=== PATIENT | male | born 1950 | race Caucasian/White ===

== ENCOUNTER → 2020-09-17 | Outpatient (CLI) | payer MEDICARE, OTHER ==
[~2020-09-17] MED LIST: BUME1TAB7 PO; CARV3.12 PO; DIGO125T71 PO; EZET10TA13 PO; PITA2TAB2 PO; RIVA15TA PO
== END | disposition home or self-care (01) ==
LOC: RAH 10:48
PROVIDERS: ATTEND Internal Medicine Cardiovascular Disease
DX: T82.110A Breakdown (mechanical) of cardiac electrode, initial encounter (principal); X58.XXXA Exposure to other specified factors, initial encounter
CPT/HCPCS: 71046

== ENCOUNTER → 2021-02-03 | Outpatient (CLI) | payer MEDICARE | END | disposition home or self-care (01) | LOC: SHCH 15:42 | PROVIDERS: ATTEND Internal Medicine Cardiovascular Disease | DX: I42.9 Cardiomyopathy, unspecified (principal) | CPT/HCPCS: 93306; 93356 ==

== ENCOUNTER → 2022-07-06 | Outpatient (CLI) | payer MEDICARE ==
[2022-07-06 12:41] LABS: CARBON DIOXIDE 33 mmol/L (21-32); CHLORIDE 104 mmol/L (101-111); CREATININE 1.6 mg/dL (0.5-1.5); GLOMERULAR FILTR. RATE CALC 45 mL/min (>60); GLUCOSE,RANDOM 96 mg/dL (70-105); POTASSIUM 4.2 mmol/L (3.5-5.1); SODIUM SERUM 140 mmol/L (136-145); UREA NITROGEN, BLOOD 25 mg/dL (7-18)
[2022-07-06 12:49] LABS: DIGOXIN < 0.20 ng/mL (0.50-2.00)
== END | disposition home or self-care (01) ==
LOC: LAB 10:46
PROVIDERS: ATTEND Internal Medicine Cardiovascular Disease
DX: I50.22 Chronic systolic (congestive) heart failure (principal)
CPT/HCPCS: 36415; 80048; 80162; 83880

== ENCOUNTER → 2022-09-10 | Outpatient (CLI) | payer MEDICARE ==
[2022-09-10 14:00] LABS: CREATININE 1.6 mg/dL (0.5-1.5)
== END | disposition home or self-care (01) ==
LOC: LAB 11:44
PROVIDERS: ATTEND Internal Medicine Cardiovascular Disease
DX: I50.42 Chronic combined systolic (congestive) and diastolic (congestive) heart failure (principal)
CPT/HCPCS: 36415; 80048; 83880

== ENCOUNTER → 2022-09-23 | Outpatient (CLI) | payer MEDICARE ==
[2022-09-23 13:06] LABS: BASOPHILS % (AUTO) 1.1 % (0.0-5.0); EOSINOPHILS % (AUTO) 0.9 % (0.0-8.0); HEMATOCRIT 36.7 % (42-54); LYMPHOCYTES % (AUTO) 15.5 % (21.0-51.0); MEAN CORPUSCULAR HEMOGLOBIN 28.7 pg (27.0-33.0); MEAN CORPUSCULAR HGB CONC 31.9 g/dL (32.0-36.0); NEUTROPHILS % (AUTO) 67.3 % (40.0-77.0); PLATELET COUNT (AUTO) 202 K/uL (130-400); RED BLOOD CELL COUNT(AUTO) 4.08 MIL/uL (4.50-6.20); RED CELL DISTRIBUTION WIDTH 17.2 % (11.0-15.5); WHITE BLOOD COUNT (AUTO) 6.3 K/uL (4.8-10.8)
[2022-09-23 13:27] LABS: ALBUMIN 3.2 g/dL (3.5-5.0); CREATININE 1.6 mg/dL (0.5-1.5); MAGNESIUM 2.1 mg/dL (1.80-2.40); POTASSIUM 3.6 mmol/L (3.5-5.1); THYROID STIMULATING HORMONE 1.49 uIU/mL (0.36-3.74); TOTAL PROTEIN, SERUM 6.1 g/dL (6.0-8.3)
== END | disposition home or self-care (01) ==
LOC: LAB 11:17
PROVIDERS: ATTEND Internal Medicine Cardiovascular Disease
DX: I50.42 Chronic combined systolic (congestive) and diastolic (congestive) heart failure (principal); I48.0 Paroxysmal atrial fibrillation; R53.83 Other fatigue
CPT/HCPCS: 36415; 80053; 83735; 84436; 84443; 85025

== ENCOUNTER 2022-10-01 06:17 | Inpatient (IN) | payer MEDICARE ==
[~2022-10-01] VITALS: Ht 170.2 cm; Wt 68.3 kg
[2022-10-01 06:38] LABS: BASOPHILS % (AUTO) 1.3 % (0.0-5.0); LYMPHOCYTES % (AUTO) 17.9 % (21.0-51.0); MEAN CORPUSCULAR HEMOGLOBIN 28.2 pg (27.0-33.0); MEAN CORPUSCULAR HGB CONC 31.8 g/dL (32.0-36.0); MEAN CORPUSCULAR VOLUME 88.6 fL (79-99); MONOCYTES % (AUTO) 16.9 % (3.0-13.0); NEUTROPHILS % (AUTO) 61.6 % (40.0-77.0); PLATELET COUNT (AUTO) 207 K/uL (130-400); RED BLOOD CELL COUNT(AUTO) 4.29 MIL/uL (4.50-6.20); RED CELL DISTRIBUTION WIDTH 17.2 % (11.0-15.5)
[2022-10-01 06:53] LABS: ALBUMIN 3.3 g/dL (3.5-5.0); CREATININE 2.1 mg/dL (0.5-1.5); POTASSIUM 3.9 mmol/L (3.5-5.1); TOTAL PROTEIN, SERUM 6.2 g/dL (6.0-8.3)
[2022-10-01] MEDS ORDERED: MAGNESIUM 2GM PREMIX 50ML 50 ML IV PRN (08:00)
[2022-10-01] MEDS ORDERED: KCL 20 MEQ ERTAB PO PRN (08:00)
[2022-10-01] MEDS ORDERED: LIDOCAINE HCL-MPF 1% 2ML VIAL IV PRN (08:00)
[2022-10-01] MEDS ORDERED: POTASSIUM CHLORIDE 10% ELIXIR 20 MEQ/15 ML UDCUP PO PRN (08:00)
[2022-10-01] MEDS ORDERED: POTASSIUM CHLORIDE 20MEQ/100ML 100 ML IV PRN (08:00)
[2022-10-01] MEDS ORDERED: MORPHINE 2 MG SYG IV PRN (08:00)
[2022-10-01] MEDS ORDERED: HYDROMORPHONE 1 MG INJ IV PRN (08:00)
[2022-10-01] MEDS ORDERED: FUROSEMIDE 20MG VIAL IV SCH (08:30)
[2022-10-01] MEDS ORDERED: AMIODARONE 200 MG TABLET PO SCH (09:00)
[2022-10-01] MEDS: FUROSEMIDE 20MG VIAL IV SCH ×2 (09:14→20:24)
[2022-10-01] MEDS: KCL 20 MEQ ERTAB PO SCH ×2 (09:17→20:25)
[2022-10-01] MEDS: ENOXAPARIN SODIUM 80 MG/0.8 ML SQ SCH ×2 (09:18→20:26)
[2022-10-01] MEDS: AMIODARONE 200 MG TABLET PO SCH (09:18)
[2022-10-01] MEDS ORDERED: SACU1TAB PO (09:46)
[2022-10-01] MEDS ORDERED: AMIO200T68 PO (09:49)
[2022-10-01 11:31] VITALS: BP 126/86
[2022-10-01] MEDS ORDERED: CARV6.25 PO (11:44)
[2022-10-01 15:55] VITALS: BP 122/84
[2022-10-01 19:53] VITALS: BP 145/78
[2022-10-02] VITALS (7 sets, daily range): BP systolic 105–141; BP diastolic 71–93
[2022-10-02] MEDS: FUROSEMIDE 20MG VIAL IV SCH ×2 (08:07→20:35)
[2022-10-02] MEDS: AMIODARONE 200 MG TABLET PO SCH (08:08)
[2022-10-02] MEDS: PANTOPRAZOLE 40 MG TAB DR PO SCH (08:08)
[2022-10-02] MEDS: KCL 20 MEQ ERTAB PO SCH ×2 (08:08→20:36)
[2022-10-02 08:43] LABS: HEMATOCRIT 39.3 % (42-54); MEAN CORPUSCULAR HGB CONC 31.8 g/dL (32.0-36.0); MEAN CORPUSCULAR VOLUME 87.9 fL (79-99); RED BLOOD CELL COUNT(AUTO) 4.47 MIL/uL (4.50-6.20); RED CELL DISTRIBUTION WIDTH 17.1 % (11.0-15.5)
[2022-10-02 08:59] LABS: ALBUMIN 3.3 g/dL (3.5-5.0); CREATININE 2.1 mg/dL (0.5-1.5); POTASSIUM 4.1 mmol/L (3.5-5.1); TOTAL PROTEIN, SERUM 6.2 g/dL (6.0-8.3)
[2022-10-02] MEDS ORDERED: RIVAROXABAN 15 MG TABLET PO SCH ×2 (17:00→20:00)
[2022-10-02] MEDS: BUMETANIDE 1 MG TAB PO SCH (20:36)
[2022-10-02] MEDS: CARVEDILOL 6.25 MG TABLET PO SCH (20:38)
[2022-10-02] MEDS ORDERED: LIVALO 2 MG PO SCH (21:00)
[2022-10-02] MEDS ORDERED: EZETIMIBE 10 MG TAB PO SCH (21:00)
[2022-10-03 03:35] VITALS: BP 109/73
[2022-10-03] MEDS: BUMETANIDE 1 MG TAB PO SCH (07:59)
[2022-10-03] MEDS: FUROSEMIDE 20MG VIAL IV SCH (07:59)
[2022-10-03] MEDS: AMIODARONE 200 MG TABLET PO SCH (07:59)
[2022-10-03 08:00] VITALS: BP 118/68
[2022-10-03] MEDS: CARVEDILOL 6.25 MG TABLET PO SCH (08:00)
[2022-10-03] MEDS: PANTOPRAZOLE 40 MG TAB DR PO SCH (08:00)
[2022-10-03] MEDS: KCL 20 MEQ ERTAB PO SCH (08:00)
[2022-10-03] MEDS ORDERED: AMIODARONE 200 MG TABLET PO SCH (09:00)
[2022-10-03] MEDS ORDERED: SACUBITRIL/VALSARTAN 1 EACH TABLET PO SCH (09:00)
[2022-10-04] MEDS ORDERED: DIGOXIN 125 MCG TABLET PO SCH (09:00)
== END 2022-10-03 10:17 | disposition home or self-care (01) | DRG 291 ==
LOC: EDH 06:17 → EDHIP 06:20 → 2AH 11:26
PROVIDERS: ADMIT Internal Medicine; ATTEND Internal Medicine
DX: I13.0 Hypertensive heart and chronic kidney disease with heart failure and stage 1 through stage 4 chronic kidney disease, or unspecified chronic kidney disease (principal); I50.23 Acute on chronic systolic (congestive) heart failure; J96.01 Acute respiratory failure with hypoxia; J98.11 Atelectasis; N18.4 Chronic kidney disease, stage 4 (severe); I25.10 Atherosclerotic heart disease of native coronary artery without angina pectoris; I25.2 Old myocardial infarction; I25.5 Ischemic cardiomyopathy; I48.0 Paroxysmal atrial fibrillation; Z79.01 Long term (current) use of anticoagulants; Z79.899 Other long term (current) drug therapy; Z95.5 Presence of coronary angioplasty implant and graft; Z95.810 Presence of automatic (implantable) cardiac defibrillator; E78.5 Hyperlipidemia, unspecified
CPT/HCPCS: 36415; 71045; 80053; 83605; 83735; 83880; 84484; 85025; 85027; 86850; 86900; 86901; 93005; 99291; G0378; J1650; J1940

== ENCOUNTER → 2022-10-06 | Outpatient (CLI) | payer MEDICARE ==
[~2022-10-06] MED LIST changes: +AMIO200T68 PO; -CARV3.12 PO; +CARV6.25 PO; +SACU1TAB PO
[2022-10-06 12:48] LABS: CREATININE 2.1 mg/dL (0.5-1.5)
== END | disposition home or self-care (01) ==
LOC: LAB 10:57
PROVIDERS: ATTEND Internal Medicine Cardiovascular Disease
DX: I50.22 Chronic systolic (congestive) heart failure (principal)
CPT/HCPCS: 36415; 80048; 83880

== ENCOUNTER → 2022-10-20 | Outpatient (CLI) | payer MEDICARE ==
[2022-10-20 12:39] LABS: CREATININE 2.3 mg/dL (0.5-1.5); POTASSIUM 3.8 mmol/L (3.5-5.1)
== END | disposition home or self-care (01) ==
LOC: LAB 10:27
PROVIDERS: ATTEND Internal Medicine Cardiovascular Disease
DX: I50.42 Chronic combined systolic (congestive) and diastolic (congestive) heart failure (principal)
CPT/HCPCS: 36415; 80048; 83880

== ENCOUNTER 2022-11-04 07:04 | Day surgery (SDC) | payer MEDICARE ==
[2022-11-03 15:39] LABS: BASOPHILS % (AUTO) 1.4 % (0.0-5.0); EOSINOPHILS % (AUTO) 1.4 % (0.0-8.0); HEMATOCRIT 39.9 % (42-54); LYMPHOCYTES % (AUTO) 20.2 % (21.0-51.0); MEAN CORPUSCULAR HEMOGLOBIN 28.2 pg (27.0-33.0); MEAN CORPUSCULAR HGB CONC 31.1 g/dL (32.0-36.0); MEAN CORPUSCULAR VOLUME 90.9 fL (79-99); MONOCYTES % (AUTO) 13.9 % (3.0-13.0); NEUTROPHILS % (AUTO) 62.7 % (40.0-77.0); PLATELET COUNT (AUTO) 185 K/uL (130-400); RED BLOOD CELL COUNT(AUTO) 4.39 MIL/uL (4.50-6.20); RED CELL DISTRIBUTION WIDTH 16.6 % (11.0-15.5)
[2022-11-03 15:50] LABS: INR 1.67 (0.85-1.15); PROTHROMBIN TIME 17.7 SEC (9.6-11.6)
[2022-11-03 15:52] LABS: PARTIAL THROMBOPLASTIN TIME 37.9 SEC (26.3-35.5)
[2022-11-03 15:57] LABS: CREATININE 2.5 mg/dL (0.5-1.5); DIGOXIN 0.97 ng/mL (0.50-2.00); MAGNESIUM 2.2 mg/dL (1.80-2.40); POTASSIUM 4.2 mmol/L (3.5-5.1)
[2022-11-03 16:01] VITALS: BP 93/60
[~2022-11-04] VITALS: Ht 170.2 cm; Wt 68.1 kg
[2022-11-04] VITALS (10 sets, daily range): BP systolic 97–116; BP diastolic 53–78
[~2022-11-04 07:04] MED LIST changes: -BUME1TAB7 PO; +PHARMACY COMMUNICATION MISC SCH; +TORS20TA4 PO
[2022-11-04] MEDS ORDERED: MIDAZOLAM HCL 1 MG/ML 2ML VIAL ONE ×3 (08:04→08:07)
[2022-11-04] MEDS ORDERED: FENTANYL CITRATE PF 50 MCG/1 ML 2ML VIAL ONE ×2 (08:04→08:06)
[2022-11-04] MEDS ORDERED: FLUMAZENIL 0.1MG/1ML 5ML VIAL IV ONE (08:05)
[2022-11-04] MEDS ORDERED: NALOXONE HCL 0.4 MG/1 ML ML ONE (08:05)
[2022-11-04] MEDS ORDERED: 0.9%NACL 1000ML 1,000 ML IV ONE (08:05)
[2022-11-04] MEDS ORDERED: TORS20TA4 PO (10:59)
[2022-11-04] MEDS ORDERED: AMIO200T68 PO (10:59)
== END 2022-11-04 12:45 | disposition home or self-care (01) ==
LOC: DAH 07:04
PROVIDERS: ATTEND Internal Medicine Cardiovascular Disease
DX: I48.0 Paroxysmal atrial fibrillation (principal); I48.19 Other persistent atrial fibrillation; I25.10 Atherosclerotic heart disease of native coronary artery without angina pectoris; I13.0 Hypertensive heart and chronic kidney disease with heart failure and stage 1 through stage 4 chronic kidney disease, or unspecified chronic kidney disease; I50.42 Chronic combined systolic (congestive) and diastolic (congestive) heart failure; N18.30 Chronic kidney disease, stage 3 unspecified; E78.5 Hyperlipidemia, unspecified; Z79.01 Long term (current) use of anticoagulants; Z88.8 Allergy status to other drugs, medicaments and biological substances; Z79.899 Other long term (current) drug therapy; Z95.0 Presence of cardiac pacemaker; Z86.73 Personal history of transient ischemic attack (TIA), and cerebral infarction without residual deficits; Z98.890 Other specified postprocedural states
CPT/HCPCS: 80162; 83735; 80048; 85025; 85610; 85730; 36415; 92960; 93005 ×2; J3010; J7030 ×2; J2250; A4615; A4215; A4657; A4222; A4221; A4663; A4216; A4606; A4223 ×3; 99152; J2310; J3490

== ENCOUNTER → 2023-01-20 | Outpatient (CLI) | payer MEDICARE ==
[~2023-01-20] MED LIST changes: -PHARMACY COMMUNICATION MISC SCH
[2023-01-20 16:28] LABS: CREATININE 2.7 mg/dL (0.5-1.5); POTASSIUM 3.6 mmol/L (3.5-5.1)
== END | disposition home or self-care (01) ==
LOC: LAB 15:35
PROVIDERS: ATTEND Internal Medicine Cardiovascular Disease
DX: I50.22 Chronic systolic (congestive) heart failure (principal)
CPT/HCPCS: 36415; 80048

== ENCOUNTER → 2023-01-25 | Outpatient (CLI) | payer MEDICARE ==
[2023-01-25 17:15] LABS: T4 (THYROXINE) 8.7 ug/dL (4.7-13.3); THYROID STIMULATING HORMONE 1.61 uIU/mL (0.36-3.74)
[2023-01-28 09:48] LABS: RAPID PLASMA REAGIN NONREACTIVE (NONREACTIVE)
== END | disposition home or self-care (01) ==
LOC: LAB 12:41
PROVIDERS: ATTEND Internal Medicine Cardiovascular Disease
DX: I50.22 Chronic systolic (congestive) heart failure (principal); F03.90 Unspecified dementia, unspecified severity, without behavioral disturbance, psychotic disturbance, mood disturbance, and anxiety; A53.9 Syphilis, unspecified; I25.5 Ischemic cardiomyopathy; Z95.810 Presence of automatic (implantable) cardiac defibrillator; Z79.899 Other long term (current) drug therapy; Z79.01 Long term (current) use of anticoagulants; Z79.82 Long term (current) use of aspirin
CPT/HCPCS: 36415; 82607; 82746; 84436; 84443; 86592; 86701; 87390

== ENCOUNTER → 2023-02-01 | Outpatient (CLI) | payer MEDICARE | END | disposition home or self-care (01) | LOC: RAH 13:20 | PROVIDERS: ATTEND Internal Medicine Cardiovascular Disease | DX: I99.8 Other disorder of circulatory system (principal); F03.90 Unspecified dementia, unspecified severity, without behavioral disturbance, psychotic disturbance, mood disturbance, and anxiety | CPT/HCPCS: 70450 ==

== ENCOUNTER → 2023-02-02 | Outpatient (CLI) | payer MEDICARE ==
[2023-02-02 16:47] LABS: CREATININE 3.4 mg/dL (0.5-1.5); DIGOXIN 1.5 ng/mL (0.50-2.00)
== END | disposition home or self-care (01) ==
LOC: LAB 11:29
PROVIDERS: ATTEND Internal Medicine Cardiovascular Disease
DX: I50.22 Chronic systolic (congestive) heart failure (principal)
CPT/HCPCS: 36415; 80048; 80162

== ENCOUNTER → 2023-02-28 | Outpatient (CLI) | payer MEDICARE ==
[2023-02-28 16:23] LABS: CREATININE 1.9 mg/dL (0.5-1.5); POTASSIUM 3.3 mmol/L (3.5-5.1)
== END | disposition home or self-care (01) ==
LOC: LAB 11:32
PROVIDERS: ATTEND Internal Medicine Cardiovascular Disease
DX: I50.22 Chronic systolic (congestive) heart failure (principal)
CPT/HCPCS: 36415; 80048

== ENCOUNTER → 2023-03-09 | Outpatient (CLI) | payer MEDICARE ==
[2023-03-09 12:53] LABS: CREATININE 2.1 mg/dL (0.5-1.5); POTASSIUM 4.2 mmol/L (3.5-5.1)
== END | disposition home or self-care (01) ==
LOC: LAB 11:02
PROVIDERS: ATTEND Internal Medicine Cardiovascular Disease
DX: I25.10 Atherosclerotic heart disease of native coronary artery without angina pectoris (principal)
CPT/HCPCS: 36415; 80048

== ENCOUNTER → 2023-03-16 | Outpatient (CLI) | payer MEDICARE ==
[2023-03-16 12:59] LABS: CREATININE 2.2 mg/dL (0.5-1.5); POTASSIUM 4.1 mmol/L (3.5-5.1)
== END | disposition home or self-care (01) ==
LOC: LAB 10:31
PROVIDERS: ATTEND Internal Medicine Cardiovascular Disease
DX: I25.10 Atherosclerotic heart disease of native coronary artery without angina pectoris (principal)
CPT/HCPCS: 36415; 80048

== ENCOUNTER 2023-04-20 06:21 | Day surgery (SDC) | payer MEDICARE ==
[2023-04-18 13:29] VITALS: BP 113/69; PULSE 60; RESP 16
[2023-04-18 13:35] LABS: BASOPHILS # (AUTO) 0.08 K/uL (0.00-0.20); BASOPHILS % (AUTO) 1.5 % (0.0-5.0); EOSINOPHILS # (AUTO) 0.12 K/uL (0.00-0.70); EOSINOPHILS % (AUTO) 2.3 % (0.0-8.0); HEMATOCRIT 40.8 % (42-54); LYMPHOCYTES % (AUTO) 18.2 % (21.0-51.0); MEAN CORPUSCULAR HEMOGLOBIN 29.3 pg (27.0-33.0); MEAN CORPUSCULAR HGB CONC 31.9 g/dL (32.0-36.0); MEAN CORPUSCULAR VOLUME 91.9 fL (79-99); MONOCYTES # (AUTO) 0.7 K/uL (0.1-1.0); MONOCYTES % (AUTO) 13.2 % (3.0-13.0); NEUTROPHILS # (AUTO) 3.4 K/uL (1.8-7.7); NEUTROPHILS % (AUTO) 64.8 % (40.0-77.0); PLATELET COUNT (AUTO) 167 K/uL (130-400); RED BLOOD CELL COUNT(AUTO) 4.44 MIL/uL (4.50-6.20); RED CELL DISTRIBUTION WIDTH 15.4 % (11.0-15.5); WHITE BLOOD COUNT (AUTO) 5.2 K/uL (4.8-10.8)
[2023-04-18 13:51] LABS: CREATININE 2.3 mg/dL (0.5-1.5); POTASSIUM 4.1 mmol/L (3.5-5.1)
[2023-04-18 13:52] LABS: INR 1.02 (0.85-1.15); PROTHROMBIN TIME 11.8 SEC (9.6-11.6)
[2023-04-18 13:53] LABS: PARTIAL THROMBOPLASTIN TIME 28.2 SEC (26.3-35.5)
[~2023-04-20] VITALS: Ht 170.2 cm; Wt 58.3 kg
[2023-04-20] VITALS (8 sets, daily range): BP systolic 104–146; BP diastolic 65–90; PULSE 57–64; RESP 8–17
[~2023-04-20 06:21] MED LIST changes: +DAPA10TA PO; -EZET10TA13 PO; +EZET10TA81 PO; -PITA2TAB2 PO; +POTA10CA85 PO; -SACU1TAB PO
[2023-04-20] MEDS ORDERED: 0.9%NACL 1000ML 1,000 ML IV ONE (08:41)
[2023-04-20] MEDS ORDERED: LIDOCAINE HCL 1% MDV 50ML VIAL ONE (09:03)
[2023-04-20] MEDS ORDERED: IOHEXOL 350 MG/ML 100ML INFUS..BTL IV ONE (09:04)
[2023-04-20] MEDS ORDERED: MIDAZOLAM HCL 1 MG/ML 2ML VIAL ONE ×3 (09:04→10:38)
[2023-04-20] MEDS ORDERED: BUPIVACAINE/PF 0.25% 30ML VIAL IJ ONE (09:04)
[2023-04-20] MEDS ORDERED: MEPERIDINE-PF 25 MG/ML SYG ONE ×3 (09:04→10:38)
[2023-04-20] MEDS ORDERED: CEFAZOLIN SODIUM 1 GM VIAL ONE (09:04)
[2023-04-20] MEDS ORDERED: BACITRACIN 1 EACH PACKET TP ONE (10:36)
[2023-04-20] MEDS ORDERED: TRAM50TA4 PO (11:24)
[2023-04-20] MEDS ORDERED: ACETAMINOPHEN WITH CODEINE 1 TAB TAB PO PRN (11:30)
[2023-04-20] MEDS ORDERED: ACETAMINOPHEN 500 MG TABLET PO PRN (11:30)
== END 2023-04-20 15:15 | disposition home or self-care (01) ==
LOC: DAH 06:21
PROVIDERS: ATTEND Internal Medicine Cardiovascular Disease
DX: I25.5 Ischemic cardiomyopathy (principal); I49.5 Sick sinus syndrome; I44.1 Atrioventricular block, second degree; I45.10 Unspecified right bundle-branch block; I48.0 Paroxysmal atrial fibrillation; I13.0 Hypertensive heart and chronic kidney disease with heart failure and stage 1 through stage 4 chronic kidney disease, or unspecified chronic kidney disease; N18.30 Chronic kidney disease, stage 3 unspecified; I50.42 Chronic combined systolic (congestive) and diastolic (congestive) heart failure; I25.10 Atherosclerotic heart disease of native coronary artery without angina pectoris; E78.5 Hyperlipidemia, unspecified; I25.2 Old myocardial infarction; Z95.5 Presence of coronary angioplasty implant and graft; Z82.49 Family history of ischemic heart disease and other diseases of the circulatory system; Z88.8 Allergy status to other drugs, medicaments and biological substances; Z79.899 Other long term (current) drug therapy; Z79.01 Long term (current) use of anticoagulants
CPT/HCPCS: 80048; 85025; 85610; 85730; 36415; 93005; 33264; 33225; 71045; C1769 ×2; C1882; C1900; J0690; J7030; J3490 ×2; J2250 ×3; J2175 ×3; Q9967; A4215; A4222; A4221; A4663; A4216; A4606; Q9965; A4223 ×3; 33223; 99156; 99157

== ENCOUNTER → 2023-05-26 | Outpatient (CLI) | payer MEDICARE ==
[~2023-05-26] MED LIST changes: +TRAM50TA4 PO
[2023-05-26 16:40] LABS: CREATININE 2.1 mg/dL (0.5-1.5); POTASSIUM 4.5 mmol/L (3.5-5.1)
== END | disposition home or self-care (01) ==
LOC: LAB 14:15
PROVIDERS: ATTEND Internal Medicine Cardiovascular Disease
DX: I50.22 Chronic systolic (congestive) heart failure (principal)
CPT/HCPCS: 36415; 80048

== ENCOUNTER → 2023-06-08 | Outpatient (CLI) | payer MEDICARE ==
[2023-06-08 12:17] LABS: CREATININE 2.1 mg/dL (0.5-1.5)
== END | disposition home or self-care (01) ==
LOC: LAB 09:59
PROVIDERS: ATTEND Internal Medicine Cardiovascular Disease
DX: I50.42 Chronic combined systolic (congestive) and diastolic (congestive) heart failure (principal)
CPT/HCPCS: 36415; 80048

== ENCOUNTER → 2023-06-15 | Outpatient (CLI) | payer MEDICARE ==
[2023-06-15 12:48] LABS: CREATININE 1.9 mg/dL (0.5-1.5); POTASSIUM 3.8 mmol/L (3.5-5.1)
== END | disposition home or self-care (01) ==
LOC: LAB 10:34
PROVIDERS: ATTEND Internal Medicine Cardiovascular Disease
DX: I50.22 Chronic systolic (congestive) heart failure (principal)
CPT/HCPCS: 36415; 80048; 83880

== ENCOUNTER → 2023-08-29 | Outpatient (CLI) | payer MEDICARE ==
[2023-08-29 16:22] LABS: POTASSIUM 4.4 mmol/L (3.5-5.1)
== END | disposition home or self-care (01) ==
LOC: LAB 10:00
PROVIDERS: ATTEND Internal Medicine Cardiovascular Disease
DX: I25.5 Ischemic cardiomyopathy (principal)
CPT/HCPCS: 36415; 80048

== ENCOUNTER → 2023-12-05 | Outpatient (CLI) | payer MEDICARE ==
[~2023-12-05] MED LIST changes: -POTA10CA85 PO; +POTA10CA95 PO
[2023-12-05 12:10] LABS: BASOPHILS # (AUTO) 0.06 K/uL (0.00-0.20); BASOPHILS % (AUTO) 1.1 % (0.0-5.0); EOSINOPHILS # (AUTO) 0.17 K/uL (0.00-0.70); EOSINOPHILS % (AUTO) 3.1 % (0.0-8.0); HEMATOCRIT 38.6 % (42-54); IMMATURE GRANULOCYTE ABSOLUTE 0.01 K/uL (0-1); LYMPHOCYTES % (AUTO) 18.7 % (21.0-51.0); MEAN CORPUSCULAR HEMOGLOBIN 29.8 pg (27.0-33.0); MEAN CORPUSCULAR HGB CONC 31.3 g/dL (32.0-36.0); MEAN CORPUSCULAR VOLUME 95.1 fL (79-99); MONOCYTES # (AUTO) 0.8 K/uL (0.1-1.0); MONOCYTES % (AUTO) 14.1 % (3.0-13.0); NEUTROPHILS # (AUTO) 3.4 K/uL (1.8-7.7); NEUTROPHILS % (AUTO) 62.8 % (40.0-77.0); PLATELET COUNT (AUTO) 142 K/uL (130-400); RED BLOOD CELL COUNT(AUTO) 4.06 MIL/uL (4.50-6.20); RED CELL DISTRIBUTION WIDTH 15.7 % (11.0-15.5); WHITE BLOOD COUNT (AUTO) 5.5 K/uL (4.8-10.8)
[2023-12-05 12:29] LABS: ALBUMIN 3.4 g/dL (3.5-5.0); BILIRUBIN,TOTAL 0.6 mg/dL (0.2-1.0); CREATININE 1.7 mg/dL (0.5-1.3); DIGOXIN 0.49 ng/mL (0.50-2.00); POTASSIUM 4.2 mmol/L (3.5-5.1); TOTAL PROTEIN, SERUM 6.4 g/dL (6.0-8.3)
== END | disposition home or self-care (01) ==
LOC: LAB 08:57
PROVIDERS: ATTEND Internal Medicine Cardiovascular Disease
DX: I48.0 Paroxysmal atrial fibrillation (principal); I50.42 Chronic combined systolic (congestive) and diastolic (congestive) heart failure; Z79.01 Long term (current) use of anticoagulants
CPT/HCPCS: 36415; 80053; 80061; 80162; 85025

== ENCOUNTER → 2024-04-20 | Outpatient (CLI) | payer MEDICARE ==
[2024-04-20 12:25] LABS: BASOPHILS # (AUTO) 0.06 K/uL (0.00-0.20); BASOPHILS % (AUTO) 1.4 % (0.0-5.0); EOSINOPHILS # (AUTO) 0.16 K/uL (0.00-0.70); EOSINOPHILS % (AUTO) 3.8 % (0.0-8.0); HEMATOCRIT 39.6 % (42-54); LYMPHOCYTES % (AUTO) 22.5 % (21.0-51.0); MEAN CORPUSCULAR HEMOGLOBIN 30.6 pg (27.0-33.0); MEAN CORPUSCULAR HGB CONC 32.1 g/dL (32.0-36.0); MEAN CORPUSCULAR VOLUME 95.4 fL (79-99); MONOCYTES # (AUTO) 0.6 K/uL (0.1-1.0); MONOCYTES % (AUTO) 13.7 % (3.0-13.0); NEUTROPHILS # (AUTO) 2.5 K/uL (1.8-7.7); NEUTROPHILS % (AUTO) 58.6 % (40.0-77.0); PLATELET COUNT (AUTO) 149 K/uL (130-400); RED BLOOD CELL COUNT(AUTO) 4.15 MIL/uL (4.50-6.20); RED CELL DISTRIBUTION WIDTH 15.1 % (11.0-15.5); WHITE BLOOD COUNT (AUTO) 4.2 K/uL (4.8-10.8)
[2024-04-20 12:50] LABS: ALBUMIN 3.5 g/dL (3.5-5.0); BILIRUBIN,TOTAL 0.4 mg/dL (0.2-1.0); POTASSIUM 4.4 mmol/L (3.5-5.1); THYROID STIMULATING HORMONE 1.11 uIU/mL (0.36-3.74); TOTAL PROTEIN, SERUM 6.8 g/dL (6.0-8.3)
== END | disposition home or self-care (01) ==
LOC: LAB 09:29
PROVIDERS: ATTEND Internal Medicine Cardiovascular Disease
DX: I25.10 Atherosclerotic heart disease of native coronary artery without angina pectoris (principal); D64.9 Anemia, unspecified; I50.22 Chronic systolic (congestive) heart failure
CPT/HCPCS: 36415; 80053; 80061; 84439; 84443; 85025

== ENCOUNTER → 2024-06-26 | Outpatient (CLI) | payer MEDICARE ==
--- NOTE | 2024-06-26 13:23 | HMCIMG ---
CHEST 1VW REASON: Atherosclerotic heart disease of [place] coronary artery without angina pect COMPARISON: 04/20/2023 FINDINGS: There is a small right pleural effusion. Lungs are clear. Heart size is normal. There is no vascular congestion. There is a bipolar pacemaker. IMPRESSION: 1. Small right pleural effusion. 2. Otherwise unremarkable exam.
== END | disposition home or self-care (01) ==
LOC: RAH 10:49
PROVIDERS: ATTEND Internal Medicine Cardiovascular Disease
DX: J90 Pleural effusion, not elsewhere classified (principal); R06.02 Shortness of breath; I25.10 Atherosclerotic heart disease of native coronary artery without angina pectoris; I50.22 Chronic systolic (congestive) heart failure
CPT/HCPCS: 71045

== ENCOUNTER → 2024-07-30 | Outpatient (CLI) | payer MEDICARE ==
[2024-07-30 12:25] LABS: BASOPHILS # (AUTO) 0.07 K/uL (0.00-0.20); BASOPHILS % (AUTO) 1.6 % (0.0-5.0); EOSINOPHILS # (AUTO) 0.11 K/uL (0.00-0.70); EOSINOPHILS % (AUTO) 2.6 % (0.0-8.0); HEMATOCRIT 42.9 % (42-54); IMMATURE GRANULOCYTE ABSOLUTE 0.01 K/uL (0-1); LYMPHOCYTES # (AUTO) 0.9 K/uL (1.0-4.8); LYMPHOCYTES % (AUTO) 21.2 % (21.0-51.0); MEAN CORPUSCULAR HEMOGLOBIN 29.9 pg (27.0-33.0); MEAN CORPUSCULAR HGB CONC 31.5 g/dL (32.0-36.0); MEAN CORPUSCULAR VOLUME 94.9 fL (79-99); MONOCYTES # (AUTO) 0.5 K/uL (0.1-1.0); MONOCYTES % (AUTO) 12.2 % (3.0-13.0); NEUTROPHILS # (AUTO) 2.6 K/uL (1.8-7.7); NEUTROPHILS % (AUTO) 62.2 % (40.0-77.0); PLATELET COUNT (AUTO) 160 K/uL (130-400); RED BLOOD CELL COUNT(AUTO) 4.52 MIL/uL (4.50-6.20); RED CELL DISTRIBUTION WIDTH 15.1 % (11.0-15.5); WHITE BLOOD COUNT (AUTO) 4.3 K/uL (4.8-10.8)
[2024-07-30 12:48] LABS: ALBUMIN 3.7 g/dL (3.5-5.0); BILIRUBIN,TOTAL 0.6 mg/dL (0.2-1.0); CREATININE 1.8 mg/dL (0.5-1.3); POTASSIUM 4.3 mmol/L (3.5-5.1); TOTAL PROTEIN, SERUM 6.9 g/dL (6.0-8.3)
== END | disposition home or self-care (01) ==
LOC: LAB 11:13
PROVIDERS: ATTEND Internal Medicine Cardiovascular Disease
DX: I11.0 Hypertensive heart disease with heart failure (principal); I50.22 Chronic systolic (congestive) heart failure; E78.5 Hyperlipidemia, unspecified
CPT/HCPCS: 36415; 80053; 80061; 83880; 85025

== ENCOUNTER → 2024-10-30 | Outpatient (CLI) | payer MEDICARE ==
[2024-10-30 16:26] LABS: BASOPHILS # (AUTO) 0.06 K/uL (0.00-0.20); BASOPHILS % (AUTO) 1.2 % (0.0-5.0); EOSINOPHILS # (AUTO) 0.21 K/uL (0.00-0.70); EOSINOPHILS % (AUTO) 4.1 % (0.0-8.0); HEMATOCRIT 38.4 % (42-54); IMMATURE GRANULOCYTE ABSOLUTE 0.02 K/uL (0-1); LYMPHOCYTES % (AUTO) 20.4 % (21.0-51.0); MEAN CORPUSCULAR HEMOGLOBIN 30.2 pg (27.0-33.0); MEAN CORPUSCULAR HGB CONC 31.3 g/dL (32.0-36.0); MEAN CORPUSCULAR VOLUME 96.5 fL (79-99); MONOCYTES # (AUTO) 0.8 K/uL (0.1-1.0); MONOCYTES % (AUTO) 15.9 % (3.0-13.0); PLATELET COUNT (AUTO) 162 K/uL (130-400); RED BLOOD CELL COUNT(AUTO) 3.98 MIL/uL (4.50-6.20); RED CELL DISTRIBUTION WIDTH 15.3 % (11.0-15.5); WHITE BLOOD COUNT (AUTO) 5.1 K/uL (4.8-10.8)
[2024-10-30 16:48] LABS: ALBUMIN 3.5 g/dL (3.5-5.0); BILIRUBIN,TOTAL 0.5 mg/dL (0.2-1.0); CREATININE 1.9 mg/dL (0.5-1.3); DIGOXIN 0.57 ng/mL (0.50-2.00); POTASSIUM 4.1 mmol/L (3.5-5.1); THYROID STIMULATING HORMONE 0.71 uIU/mL (0.36-3.74); TOTAL PROTEIN, SERUM 6.7 g/dL (6.0-8.3)
[2024-10-30 17:01] LABS: T4 (THYROXINE) 6.7 ug/dL (4.7-13.3)
== END | disposition home or self-care (01) ==
LOC: LAB 15:18
PROVIDERS: ATTEND Internal Medicine Cardiovascular Disease
DX: I13.0 Hypertensive heart and chronic kidney disease with heart failure and stage 1 through stage 4 chronic kidney disease, or unspecified chronic kidney disease (principal); I50.22 Chronic systolic (congestive) heart failure; N18.4 Chronic kidney disease, stage 4 (severe); I25.10 Atherosclerotic heart disease of native coronary artery without angina pectoris; Z79.01 Long term (current) use of anticoagulants
CPT/HCPCS: 36415; 80053; 80162; 84436; 84443; 85025

== ENCOUNTER → 2024-12-28 | Outpatient (CLI) | payer MEDICARE ==
[~2024-12-28] VITALS: Ht 170.2 cm; Wt 65.2 kg
[~2024-12-28] MED LIST changes: +AMIO100T4 PO; -AMIO200T68 PO; +AMIO200T73 PO; +CARV3.12 PO; +MEMA10TA21 PO; +POTA-200 PO; +SACU1TAB PO
[2024-12-28 12:15] VITALS: BP 105/72; PULSE 70; RESP 18; TEMP 97.9
[2024-12-28 12:20] LABS: BASOPHILS # (AUTO) 0.07 K/uL (0.00-0.20); BASOPHILS % (AUTO) 1.3 % (0.0-5.0); EOSINOPHILS % (AUTO) 3.6 % (0.0-8.0); HEMATOCRIT 37.2 % (42-54); IMMATURE GRANULOCYTE ABSOLUTE 0.01 K/uL (0-1); LYMPHOCYTES # (AUTO) 1.1 K/uL (1.0-4.8); LYMPHOCYTES % (AUTO) 19.5 % (21.0-51.0); MEAN CORPUSCULAR HEMOGLOBIN 29.3 pg (27.0-33.0); MEAN CORPUSCULAR HGB CONC 31.7 g/dL (32.0-36.0); MEAN CORPUSCULAR VOLUME 92.3 fL (79-99); MONOCYTES # (AUTO) 0.8 K/uL (0.1-1.0); MONOCYTES % (AUTO) 14.1 % (3.0-13.0); NEUTROPHILS # (AUTO) 3.4 K/uL (1.8-7.7); NEUTROPHILS % (AUTO) 61.3 % (40.0-77.0); PLATELET COUNT (AUTO) 180 K/uL (130-400); RED BLOOD CELL COUNT(AUTO) 4.03 MIL/uL (4.50-6.20); RED CELL DISTRIBUTION WIDTH 15.5 % (11.0-15.5); WHITE BLOOD COUNT (AUTO) 5.5 K/uL (4.8-10.8)
[2024-12-28 12:29] LABS: CREATININE 2.3 mg/dL (0.5-1.3); POTASSIUM 3.7 mmol/L (3.5-5.1)
[2024-12-28 12:30] LABS: INR 1.62 (0.85-1.15); PROTHROMBIN TIME 16.4 SEC (9.6-11.6)
[2024-12-28 12:32] LABS: PARTIAL THROMBOPLASTIN TIME 35.3 SEC (26.3-35.5)
--- NOTE | 2024-12-28 13:57 | EKG ---
[facility] Test Date: 2024-12-28 Test Time: 11:52:49 Pat Name: SHAJI QUINONES Department: [facility] Room: Gender: M Composite Engineer: [id number] : 1950 Requested By: SAEID CANCHOLA Order Number: [id number] Reading MD: Rolo Cox Measurements Intervals [place] Rate: 79 P: 0 [place]: 0 QRS: -27 QRSD: 151 T: 13 QT: 450 QTc: 518 Interpretive Statements Afib and ventricular-paced rhythm Compared to ECG 12/02/2024 21:39:07 No significant changes Electronically Signed On 12-30-2024 14:41:06 CDT by Rolo Cox Please click the below link to view image of tracing.
== END | disposition home or self-care (01) ==
LOC: EDSTATUS 11:00 → DAH 11:18
PROVIDERS: ATTEND Internal Medicine Cardiovascular Disease
DX: Z01.810 Encounter for preprocedural cardiovascular examination (principal); T82.110A Breakdown (mechanical) of cardiac electrode, initial encounter; Z79.01 Long term (current) use of anticoagulants; Y71.8 Miscellaneous cardiovascular devices associated with adverse incidents, not elsewhere classified; Y92.89 Other specified places as the place of occurrence of the external cause
CPT/HCPCS: 36415; 80048; 85025; 85610; 85730; 93005

== ENCOUNTER 2025-02-20 07:45 | Day surgery (SDC) | payer MEDICARE ==
[2025-02-18 11:37] LABS: IMMATURE GRANULOCYTE ABSOLUTE 0.01 K/uL (0-1); NUCLEATED RED BLOOD CELLS 0.0 % (0.0-0.19); PLATELET COUNT (AUTO) 178 K/uL (130-400); RED BLOOD CELL COUNT(AUTO) 4.45 MIL/uL (4.50-6.20); RED CELL DISTRIBUTION WIDTH 17.6 % (11.0-15.5); WHITE BLOOD COUNT (AUTO) 4.3 K/uL (4.8-10.8)
[2025-02-18 11:50] LABS: ASPARTATE AMINOTRANSFERASE 23.0 U/L (10-37); CREATININE 2.7 mg/dL (0.5-1.3); GLOMERULAR FILTR. RATE CALC 24.0 mL/min (>90); GLUCOSE,RANDOM 91.0 mg/dL (70-105); SODIUM SERUM 142.0 mmol/L (136-145); TOTAL PROTEIN, SERUM 6.9 g/dL (6.0-8.3); UREA NITROGEN, BLOOD 50.0 mg/dL (7-18)
[2025-02-18 12:02] VITALS: BP 116/75; PULSE 70; RESP 17; TEMP 97.5
--- NOTE | 2025-02-19 14:11 | NUR ---
LABS REPORTED BUN AND CREAT TO DR. CANCHOLA. OKAY PER DR. CANCHOLA. NO NEW ORDERS RECEIVED.
[~2025-02-20] VITALS: Ht 170.2 cm; Wt 58.5 kg
[~2025-02-20 07:45] MED LIST changes: -AMIO100T4 PO; -CARV3.12 PO; -EZET10TA81 PO; -POTA10CA95 PO; -TRAM50TA4 PO
[2025-02-20 07:50] VITALS: BP 106/70; PULSE 69; RESP 13; TEMP 97.2
--- NOTE | 2025-02-20 07:59 | EKG ---
[facility] Test Date: 2025-02-20 Test Time: 07:52:38 Pat Name: SHAJI QUINONES Department: [facility] Room: [facility] Gender: M Morning News Anchor: [id number] : 1950 Requested By: SAEID CANCHOLA Order Number: [id number] Reading MD: Rolo Cox Measurements Intervals [place] Rate: 70 P: 0 [place]: 0 QRS: -75 QRSD: 152 T: 56 QT: 456 QTc: 493 Interpretive Statements Afib/flutter and ventricular-paced rhythm Biventricular paced rhythm Compared to ECG 12/30/2024 16:07:58 No significant changes Electronically Signed On 02-23-2025 19:46:40 CDT by Rolo Cox Please click the below link to view image of tracing.
--- NOTE | 2025-02-20 09:20 | NUR ---
DR. CANCHOLA WAS MADE AWARE THAT PT WAS UNSURE IF HE TOOK HIS DIGOXIN AND AMIODARONE THIS MORNING. STATES SHE HAS TO GO HOME AND LOOK AT THE DAILY MEDICATION BOX. DR. CANCHOLA STATED OK TO PROCEED BUT TO TAKE XARELTO AFTER CARDIOVERSION.
--- NOTE | 2025-02-20 09:35 | NUR ---
PT SYNCHRONIZED CARDIOVERTED 150 JOULES AT THIS TIME BY DR. CANCHOLA PT TOLERATED WELL VSS NAD
--- NOTE | 2025-02-20 09:42 | NUR ---
PT AWAKE TALKING WITH DR. CANCHOLA AND PT TOLERATED PROCEDURE WELL NAD VSS
[2025-02-20 09:45] VITALS: BP 114/79; PULSE 70; RESP 15; TEMP 97.5
[2025-02-20] MEDS ORDERED: LIDOCAINE PF 100MG/5ML (2%) SYRINGE 5ML ONE (09:47)
--- NOTE | 2025-02-20 09:51 | NUR ---
PT TOOK HIS XARELTO 15MG AT THIS TIME, PER DR. CANCHOLA
[2025-02-20 10:00] VITALS: BP 102/63; PULSE 70; RESP 14
[2025-02-20 10:10] VITALS: BP 110/72; PULSE 70; RESP 15
[2025-02-20 10:20] VITALS: BP 105/80; PULSE 70; RESP 14
[2025-02-20 10:30] VITALS: BP 116/81; PULSE 70; RESP 12
--- NOTE | 2025-02-20 10:50 | NUR ---
BOTH PT AND GIVEN VERBAL AND WRITTEN DISCHARGE INSTRUCTIONS IV REMOVED SITE ASYMPTOMATIC.
--- NOTE | 2025-02-20 12:30 | EKG ---
[facility] Test Date: 2025-02-20 Test Time: 09:38:18 Pat Name: SHAJI QUINONES Department: [facility] Patient ID: [facility] [id number] Room: [facility] Gender: M Advertising Representative: [id number] : 1950 Requested By: SAEID CANCHOLA Order Number: [id number] Reading MD: Rolo Cox Measurements Intervals [place] Rate: 70 P: 36 [place]: 147 QRS: -27 QRSD: 128 T: 18 QT: 452 QTc: 488 Interpretive Statements Pacemaker spikes or artifacts Biventricular paced rhythm Sinus rhythm PEGGY, consider biatrial enlargement Right bundle branch block ST elevation secondary to IVCD Compared to ECG 02/20/2025 07:52:38 Right bundle-branch block now present Intraventricular conduction delay now present ST (T wave) deviation now present Atrial fibrillation no longer present Electronically Signed On 02-23-2025 19:46:47 CDT by Rolo Cox Please click the below link to view image of tracing.
--- NOTE | 2025-02-27 14:23 | PRN ---
Procedure Note Date of procedure: 02/20/2025 Diagnosis: Persistent atrial fibrillation Procedure: 1. Cardioversion 2. ICD programming evaluation dual x2 Physician: William Canchola MD The patient was brought to the day patient area in a fasting state. The patient's ICD was interrogated and reprogrammed. Anesthesia was provided by the anesthesia service. Cardioversion was performed with a synchronized shock at 200 joules resulting in sinus rhythm. The patient tolerated the procedure well. The ICD was again interrogated and reprogrammed. Final diagnosis: Persistent atrial fibrillation, status post successful cardioversion Plan: 1. The patient will be discharged later today and will follow up with me in the office in approximately two weeks. WILLIAM CANCHOLA MD Feb 27, 2025 14:23
== END 2025-02-20 10:50 | disposition home or self-care (01) ==
LOC: DAH 07:45
PROVIDERS: ATTEND Internal Medicine Cardiovascular Disease
DX: I48.19 Other persistent atrial fibrillation (principal); I25.10 Atherosclerotic heart disease of native coronary artery without angina pectoris; I25.2 Old myocardial infarction; I45.10 Unspecified right bundle-branch block; I10 Essential (primary) hypertension; E78.5 Hyperlipidemia, unspecified; Z79.01 Long term (current) use of anticoagulants; Z90.89 Acquired absence of other organs; Z88.8 Allergy status to other drugs, medicaments and biological substances; Z98.890 Other specified postprocedural states; Z95.810 Presence of automatic (implantable) cardiac defibrillator; Z79.899 Other long term (current) drug therapy
CPT/HCPCS: 80162; 83735; 80053; 85025; 36415; 92960; 93005 ×2; 93287; J2003; J2704; A4620; A4215; A4222; A4221; A4663; A4216; A4606; A4223 ×3; J3490

== ENCOUNTER 2025-06-11 07:07 | Day surgery (SDC) | payer MEDICARE ==
[2025-06-10 16:29] LABS: IMMATURE GRANULOCYTE ABSOLUTE 0.01 K/uL (0-1); NUCLEATED RED BLOOD CELLS 0.0 % (0.0-0.19); PLATELET COUNT (AUTO) 212 K/uL (130-400); RED BLOOD CELL COUNT(AUTO) 3.97 MIL/uL (4.50-6.20); RED CELL DISTRIBUTION WIDTH 15.9 % (11.0-15.5); WHITE BLOOD COUNT (AUTO) 5.6 K/uL (4.8-10.8)
[2025-06-10 16:40] VITALS: BP 126/87; PULSE 78; RESP 16; TEMP 99.1
[2025-06-10 16:41] LABS: CREATININE 2.1 mg/dL (0.5-1.3); GLOMERULAR FILTR. RATE CALC 32.0 mL/min (>90); GLUCOSE,RANDOM 96.0 mg/dL (70-105); SODIUM SERUM 138.0 mmol/L (136-145); UREA NITROGEN, BLOOD 37.0 mg/dL (7-18)
[2025-06-11] VITALS (19 sets, daily range): BP systolic 96–110; BP diastolic 63–77; PULSE 70–88; RESP 8–18; TEMP 97.2
[~2025-06-11] VITALS: Ht 170.2 cm; Wt 67.2 kg
[~2025-06-11 07:07] MED LIST changes: +CARV3.12 PO; -CARV6.25 PO; -POTA-200 PO
--- NOTE | 2025-06-11 07:53 | EKG ---
[facility] Test Date: 2025-06-11 Test Time: 07:16:44 Pat Name: SHAJI QUINONES Department: [facility] Room: [facility] Gender: M Nurse Supervisor: [id number] : 1950 Requested By: KATHRINE HINDS Order Number: [id number] Reading MD: Ward Loza Measurements Intervals [place] Rate: 88 P: 0 [place]: 98 QRS: 190 QRSD: 154 T: 33 QT: 440 QTc: 534 Interpretive Statements Ventricular-paced rhythm Compared to ECG 02/20/2025 09:38:18 Sinus rhythm no longer present Right bundle-branch block no longer present Intraventricular conduction delay no longer present ST (T wave) deviation no longer present Electronically Signed On 06-11-2025 21:18:15 MENTAL HEALTH SOCIAL WORKER by Ward oLza Please click the below link to view image of tracing.
[2025-06-11] MEDS: 0.9%NACL 1000ML 1,000 ML IV SCH (07:54)
[2025-06-11] MEDS ORDERED: MIDAZOLAM HCL 1 MG/ML 2ML VIAL ONE (07:59)
--- NOTE | 2025-06-11 08:27 | PRN ---
Procedure: [facility] Cardioversion Procedure Note DATE OF PROCEDURE: Jun 11, 2025 PROCEDURE PERFORMED: DIRECT-CURRENT CARDIOVERSION; CONSCIOUS SEDATION PREFORMING PHYSICIAN: KATHRINE HINDS MD, [facility] INDICATION: Persistent atrial fibrillation, with complicating recurrent acute on chronic HFrEF PROCEDURE NOTE: After informed consent was obtained, and timeout procedure performed, as well as verification of resuscitative equipment availability, the patient was sedated with 2 mg of Versed and 50 mcg of fentanyl administered in incremental doses. When adequate sedation was obtained the patient underwent direct-current cardioversion with 150 J of synchronized, biphasic, direct-current energy to sinus rhythm. The patient tolerated the procedure well. There were no immediate complications noted. COMPLICATIONS: None, the patient tolerated the procedure well and there were no immediate complications noted. He persisted in sinus rhythm and atrial-ventricular paced rhythm for several minutes of monitoring at bedside and this was confirmed on twelve-lead EKG. DISCHARGE RECOMMENDATIONS: Continue home medications. Follow-up at [facility] within 1-2 weeks with an EKG on arrival KATHRINE HINDS MD Jun 11, 2025 08:27
--- NOTE | 2025-06-11 09:28 | NUR ---
Cardioversion DP Room 16 Dr Cynthia Gutierrez RN [place] RT Preassement 0800 am Timeout 0810 0812 am Versed 1 mg IV 0812 am Fentanyl 50 mcg IV 0814 am Versed 1 mg IV 0816 am Cardioverted 150 J 0819 am EKG 0820 am Physician left room Continual Observation by RN for 30 minutes completed. Patient tolerated procedure well with no ill effects. Ate 100% of am meal and remains in a SR with paced beats. at bedside appearing supportive. TOTAL MINUTES 15
--- NOTE | 2025-06-11 12:17 | NUR ---
FULL AND COMPLETE DISCHARGE INSTRUCTIONS GIVEN TO PATIENT AND FAMILY BOTH VERBALLY AND IN WRITING. VOICED UNDERSTANDING TO CARDIOVERSION PROCEDURE AND FOLLOW UP EXPECTAIONS AND PRECAUTIONS PATIENT DENIES C/O PAIN OR NEED. PIV REMOVED WITH CATHETER TIP INTACT. W/C TO POV WITH FAMILY TO HOME SCHEDULED.
[2025-06-12] MEDS ORDERED: MIDAZOLAM HCL 1 MG/ML 2ML VIAL IVP ONE ×2 (08:30→09:00)
[2025-06-16] MEDS ORDERED: CARV3.12 PO (14:38)
[2025-06-16] MEDS ORDERED: SACU1TAB PO ×2 (14:38→14:39)
[2025-06-16] MEDS ORDERED: CARV6.25 PO (14:38)
--- NOTE | 2025-06-17 08:48 | EKG ---
[facility] Test Date: 2025-06-11 Test Time: 08:35:07 Pat Name: SHAJI QUINONES Department: [facility] Room: Gender: M Brand Engineer: [id number] : 1950 Requested By: KATHRINE HINDS Order Number: [id number] Reading MD: Saturnino Green Measurements Intervals [place] Rate: 70 P: 131 [place]: 157 QRS: 188 QRSD: 157 T: 30 QT: 491 QTc: 530 Interpretive Statements Sinus with Atrial sensing and Ventricular pacing Electronically Signed On 06-17-2025 12:10:14 TIER TRUCK DRIVER by Saturnino Green Please click the below link to view image of tracing.
--- NOTE | 2025-06-17 08:48 | EKG ---
[facility] Test Date: 2025-06-11 Test Time: 08:19:59 Pat Name: SHAJI QUINONES Department: [facility] Room: Gender: M Audio Visual Secretary: [id number] : 1950 Requested By: KATHRINE HINDS Order Number: [id number] Reading MD: Saturnino Green Measurements Intervals [place] Rate: 71 P: 146 [place]: 162 QRS: 189 QRSD: 154 T: 44 QT: 476 QTc: 519 Interpretive Statements Sinus with Atrial sensing and Ventricular pacing Electronically Signed On 06-17-2025 12:09:53 POST ACUTE CARE REGISTERED NURSE by Saturnino Green Please click the below link to view image of tracing.
== END 2025-06-11 12:25 | disposition home or self-care (01) ==
LOC: DAH 07:07
PROVIDERS: ATTEND Internal Medicine Cardiovascular Disease
DX: I48.19 Other persistent atrial fibrillation (principal); I48.0 Paroxysmal atrial fibrillation; I25.10 Atherosclerotic heart disease of native coronary artery without angina pectoris; I25.2 Old myocardial infarction; I13.0 Hypertensive heart and chronic kidney disease with heart failure and stage 1 through stage 4 chronic kidney disease, or unspecified chronic kidney disease; N18.30 Chronic kidney disease, stage 3 unspecified; E78.5 Hyperlipidemia, unspecified; I50.22 Chronic systolic (congestive) heart failure; I25.5 Ischemic cardiomyopathy; Z95.5 Presence of coronary angioplasty implant and graft; Z88.8 Allergy status to other drugs, medicaments and biological substances; Z95.810 Presence of automatic (implantable) cardiac defibrillator; Z79.01 Long term (current) use of anticoagulants; Z79.899 Other long term (current) drug therapy
CPT/HCPCS: 80048; 85025; 36415; 92960; 99152; 93005 ×3; J3010; J7030; J2250; A4620; A4215; A4222; A4221; A4663; A4216; A4606; A4223 ×3; J2312; J3490; G0500